=== PATIENT | female | born 2000 | race African-American/Black ===

== ENCOUNTER 2022-12-29 20:06 | Emergency (ER) | payer SELFPAY ==
[2022-12-29] MEDS ORDERED: Ventolin HFA Inhaler 60 PUFF INHALER ONE (20:49)
== END 2022-12-29 20:53 | disposition home or self-care (01) ==
LOC: CSHERS 20:06
DX: J45.901 Unspecified asthma with (acute) exacerbation (principal)

== ENCOUNTER 2023-01-22 14:58 | Emergency (ER) | payer BC ==
[2023-01-22] MEDS ORDERED: Dexamethasone 4 MG TAB ONE ×2 (15:32→16:37)
[2023-01-22] MEDS ORDERED: Acetaminophen 500 MG TAB ONE (15:32)
[2023-01-22 16:31] LABS: SARS-CoV-2 NAA Rapid Test Not Detected (NotDetected)
== END 2023-01-22 16:45 | disposition home or self-care (01) ==
LOC: CSHERS 14:58
DX: J06.9 Acute upper respiratory infection, unspecified (principal); Z20.822 Contact with and (suspected) exposure to COVID-19
CPT/HCPCS: 71046; J8540

== ENCOUNTER 2023-02-25 15:23 | Emergency (ER) | payer BC ==
[2023-02-25] MEDS ORDERED: predniSONE 20 MG TAB ONE (17:39)
[2023-02-25] MEDS ORDERED: Ipratropium/Albuterol 3 ML NEB ONE (17:40)
[2023-02-25 18:42] LABS: SARS-CoV-2 NAA Rapid Test Not Detected (NotDetected)
== END 2023-02-25 18:10 | disposition home or self-care (01) ==
LOC: CSHERS 15:23
DX: J45.909 Unspecified asthma, uncomplicated (principal); Z20.822 Contact with and (suspected) exposure to COVID-19
CPT/HCPCS: 71045; J7512; J7620